=== PATIENT | male | born 1945 | race Caucasian/White ===

== ENCOUNTER 2019-06-11 16:21 | Inpatient (IN) | payer MEDICARE, MEDICAID ==
--- NOTE | 2019-06-11 16:39 | ER Document Report ---
ED General - General Chief Complaint: Shortness Of Breath Stated Complaint: SHORTNESS OF BREATH Time Seen by Provider: 06/11/19 16:25 Mode of Arrival: Medic Information source: Patient, Emergency Med Personnel TRAVEL OUTSIDE OF THE [place] IN LAST 30 DAYS: No - HPI Onset: Yesterday Onset/Duration: Gradual Quality of pain: No pain Severity: Moderate Pain Level: Denies Associated symptoms: Nonproductive cough, Shortness of breath, Other - hypoxia Exacerbated by: Other - exertion Relieved by: Denies Similar symptoms previously: Yes - with COPD Recently seen / treated by doctor: No Notes: 73 year old male with a history of COPD on 3L O2, CHF, HTN, Obesity brought on by EMS for shortness of breath and trouble breathing. The patient apparently had EMS come to his home yesterday and give him a breathing treatment for shortness of breath. The patient called EMS again today. EMS says the patient had sats in the 70s and they placed him on bipap. The patient initially wanted to refuse transport apparently but eventually gave in. The patient denies fevers, chills, sweats, nausea, vomiting, chest pain, productive cough. EMS gave 125mg of Solumedrol, Albuterol, and 2g of Mg prior to ER arrival. - Related Data Allergies/Adverse Reactions: codeine Allergy (Verified 06/11/19 17:05) Past Medical History - General Information source: Patient, Emergency Med Personnel - Social History Smoking Status: Current Some Day Smoker Frequency of alcohol use: None Drug Abuse: None Lives with: Family Family History: Reviewed & Not Pertinent - Past Medical History Cardiac Medical History: Reports: Hx Congestive Heart Failure, Hx Hypertension Pulmonary Medical History: Reports: Hx COPD Review of Systems - Review of Systems Constitutional: No symptoms reported EENT: No symptoms reported Cardiovascular: No symptoms reported Respiratory: Cough, Short of breath Gastrointestinal: No symptoms reported Genitourinary: No symptoms reported Male Genitourinary: No symptoms reported Musculoskeletal: No symptoms reported Skin: No symptoms reported Hematologic/Lymphatic: No symptoms reported Neurological/Psychological: No symptoms reported -: Yes All other systems reviewed and negative Physical Exam - Vital signs Vitals: Resp Pulse Ox 21 H 94 06/11/19 16:20 06/11/19 16:20 - Notes Notes: GENERAL: Chronically ill appearing, Obese, On bipap from EMS HEAD: Atraumatic, normocephalic. EYES: Pupils equal round and reactive to light, extraocular movements intact, sclera anicteric, conjunctiva are normal. ENT: Normal appearing external ears, nares patent, oropharynx clear without exudates. Moist mucous membranes. NECK: Normal range of motion, supple without lymphadenopathy or JVD. LUNGS: Decreased breath sounds throughout. Mild audible wheezes bilaterally. HEART: Regular rate and rhythm without murmurs, rubs or gallops. ABDOMEN: Distended abdomen, soft, nontender, normoactive bowel sounds. No guarding, no rebound. No masses appreciated. EXTREMITIES: Normal range of motion, no pitting or edema. No clubbing or cyanosis. NEUROLOGICAL: Cranial nerves II through XII grossly intact. Normal speech, normal gait. PSYCH: Normal mood, normal affect. SKIN: Edema of lower legs to mid shins, warm, Dry, normal turgor, no rashes or lesions noted. Course - Re-evaluation Re-evalutation: 06/11/19 21:51 The patient arrived short of breath on bipap. He likely has a combination of COPD flare and CHF. Patient's ABG which was done on bipap showed hypercapnea. Patient has not been having infectious symptoms such as fevers, chills, sweats productive cough. Patient admitted on Bipap for further care. Patient unlikely has COVID19 based on symptoms and work up to date. No need for antibiotics at this time. Patient was given solumedrol, IV Mag, and a Neb by EMS. - Vital Signs Vital signs: Temp Pulse Resp BP Pulse Ox 98.3 F 87 26 H 130/58 H 95 06/11/19 20:53 06/11/19 20:53 06/11/19 20:53 06/11/19 20:53 06/11/19 20:53 - Laboratory Result Diagrams: 06/11/19 16:22 06/11/19 16:22 Laboratory results interpreted by me: 06/11/19 06/11/19 06/11/19 16:22 16:22 16:22 RBC 4.30 L Hgb 12.5 L RDW 15.8 H Lymph % (Auto) 10.0 L Seg Neutrophils % 79.0 H Carbonic Acid ABG pH ABG pCO2 ABG pO2 ABG HCO3 ABG Total CO2 ABG O2 Saturation Sodium 136.2 L Potassium 5.3 H Chloride 92 L Carbon Dioxide 36 H BUN 29 H Est GFR (MDRD) Non-Af 58 L Glucose 117 H Calcium 7.9 L NT-Pro-B Natriuret Pep 1110 H 06/11/19 17:45 RBC Hgb RDW Lymph % (Auto) Seg Neutrophils % Carbonic Acid 2.57 H ABG pH 7.26 L ABG pCO2 85.5 H* ABG pO2 76.5 L ABG HCO3 37.8 H ABG Total CO2 40.4 H ABG O2 Saturation 92.6 L Sodium Potassium Chloride Carbon Dioxide BUN Est GFR (MDRD) Non-Af Glucose Calcium NT-Pro-B Natriuret Pep - Diagnostic Test Radiology reviewed: Image reviewed, Reports reviewed - EKG Interpretation by Me EKG shows normal: Sinus rhythm, [place], Intervals, QRS Complexes, ST-T Waves Rate: Normal Rhythm: NSR Discharge - Discharge Clinical Impression: Hypercapnia COPD (chronic obstructive pulmonary disease) Qualifiers: COPD type: unspecified COPD Qualified Code(s): J44.9 - Chronic obstructive pulmonary disease, unspecified Heart failure Qualifiers: Heart failure type: unspecified Heart failure chronicity: acute Qualified Code(s): I50.9 - Heart failure, unspecified Condition: Poor Disposition: ADMITTED INPATIENT Admitting Provider: Bigg (Hospitalist) Unit Admitted: [facility]
[2019-06-11 16:52] LABS: ABSOLUTE BASOPHILS # (AUTO) 0.1 10^3/uL (0.0-0.2); ABSOLUTE EOSINOPHILS # (AUTO) 0.1 10^3/uL (0.0-0.6); ABSOLUTE LYMPHOCYTES (AUTO) 0.8 10^3/uL (0.5-4.7); ABSOLUTE MONOCYTES (AUTO) 0.7 10^3/uL (0.1-1.4); BASOPHILS % (AUTO) 0.7 % (0-2); EOSINOPHILS % (AUTO) 1.5 % (0-6); HEMATOCRIT 38.3 % (37.9-51.0); HEMOGLOBIN 12.5 g/dL (13.5-17.0); MEAN CORPUSCULAR HEMOGLOBIN 29.1 pg (27.0-33.4); MEAN CORPUSCULAR HGB CONC 32.7 g/dL (32.0-36.0); MEAN CORPUSCULAR VOLUME 89 fl (80-97); MONOCYTES % (AUTO) 8.8 % (3-13); PLATELET COUNT 253 10^3/uL (150-450); RED CELL DISTRIBUTION WIDTH 15.8 % (11.5-14.0); TOTAL CELLS COUNTED % (AUTO) 100 %; WHITE BLOOD COUNT 7.6 10^3/uL (4.0-10.5)
[2019-06-11 17:13] LABS: ALBUMIN 3.8 g/dL (3.5-5.0); ALKALINE PHOSPHATASE 86 U/L (38-126); ASPARTATE AMINO TRANSFERASE 29 U/L (17-59); BILIRUBIN,DIRECT 0.1 mg/dL (0.0-0.4); BILIRUBIN,TOTAL 0.8 mg/dL (0.2-1.3); BLOOD UREA NITROGEN 29 mg/dL (7-20); CALCIUM 7.9 mg/dL (8.4-10.2); CHLORIDE 92 mmol/L (98-107); GLUCOSE 117 mg/dL (75-110); POTASSIUM 5.3 mmol/L (3.6-5.0); TOTAL PROTEIN 6.9 g/dL (6.3-8.2)
[2019-06-11 17:19] LABS: ANION GAP 8 (5-19); CARBON DIOXIDE 36 mmol/L (22-30)
[2019-06-11 17:20] LABS: TROPONIN I 0.013 ng/mL
--- NOTE | 2019-06-11 17:41 | RADIOLOGY REPORT (SQ) ---
EXAM DESCRIPTION: CHEST SINGLE VIEW IMAGES COMPLETED DATE/TIME: 06/11/2019 5:08 pm REASON FOR STUDY: eval for shortness of breath. rule out pneumonia COMPARISON: None. EXAM PARAMETERS: NUMBER OF VIEWS: One view. TECHNIQUE: Single frontal radiographic view of the chest acquired. RADIATION DOSE: NA LIMITATIONS: Portable chest, large patient FINDINGS: LUNGS AND PLEURA: Pulmonary vascular congestion is present. Arslan lines are present at b oth lung bases worrisome for fluid overload or interstitial pulmonary edema. Trace bilateral pleural effusions may be present. No pneumothorax. There are left basilar air bronchograms atelectasis versus pneumonia. MEDIASTINUM AND HILAR STRUCTURES: No masses. Contour normal. HEART AND VASCULAR STRUCTURES: marked cardiomegaly BONES: No acute findings. HARDWARE: None in the chest. OTHER: No other significant finding. IMPRESSION: Pulmonary vascular congestion with interstitial edema. Trace pleural effusions may pres ent. Cardiomegaly Left retrocardiac air bronchograms atelectasis versus pneumonia TECHNICAL DOCUMENTATION: JOB ID: [id number] 2010 [employer]- All Rights Reserved Reading location - IP/workstation name: [id number]
[2019-06-11 18:06] LABS: ARTERIAL BLOOD BASE EXCESS 7.6 mmol/L; ARTERIAL BLOOD H2CO3 2.57 mmol/L (1.05-1.35); ARTERIAL BLOOD HCO3 37.8 mmol/L (20-24); ARTERIAL BLOOD O2 SATURATION 92.6 % (94-98); ARTERIAL BLOOD PH 7.26 (7.35-7.45); ARTERIAL BLOOD PO2 76.5 mmHg (80-100); ARTERIAL BLOOD TOTAL CO2 40.4 mmol/L (23-27)
[2019-06-11 18:09] LABS: ARTERIAL BLOOD PCO2 85.5 mmHg (35-45)
[2019-06-11] MEDS ORDERED: MAG HYDROX/AL HYDROX/SIMETH SUSP 30 ML UDCUP PO PRN (18:40)
[2019-06-11] MEDS ORDERED: MAGNESIUM HYDROXIDE SUSP 30 ML UDCUP PO PRN (18:40)
[2019-06-11] MEDS ORDERED: ONDANSETRON HCL INJ/PF 4 MG/2 ML SDV IV PRN (18:40)
[2019-06-11] MEDS ORDERED: ALBUTEROL SULFATE 0.083% NEB 2.5 MG/3 ML AMPUL NEB PRN (18:47)
[2019-06-11] MEDS ORDERED: GUAIFENESIN SYRP 200 MG/10 ML UDC PO PRN (18:48)
--- NOTE | 2019-06-11 19:01 | PDOC H&P ---
History of Present Illness Admission Date/PCP: TRINA MONROY MD Patient complains of: Shortness of breath History of Present Illness: JOHN LINARES SR is a 73 year old male with a past medical history significant for chronic respiratory failure (on home O2 and trilogy device), likely obesity hypoventilation syndrome, COPD, CHF, opiate dependent chronic pain, restless leg syndrome, GERD, morbid obesity, and poor medication/healthcare utilization compliance who presented to the emergency department today with a complaint of 2 days of progressively worsening shortness of breath and wheezing. Patient denies fever, productive cough. No sick contacts. In the emergency department he is found to be hypoxic on room air (70% by EMS; of note, patient utilizes home O2 at baseline), with unremarkable CBC, chemistry showing mild hyperkalemia, proBNP 1100 (no previous labs to compare to), and blood gas demonstrating acute on chronic respiratory failure with hypoxia and hypercapnia. By EMS he was provided IV Solu-Medrol, magnesium, and nebulizer treatments. He is placed on BiPAP with near immediate improvement in his respiratory distress. He is then referred to the hospital service for admission management of the above-stated complaints and findings. Past Medical History Cardiac Medical History: Reports: Congestive Heart Failure, Hyperlipidema, Hypertension Pulmonary Medical History: Reports: Chronic Obstructive Pulmonary Disease (COPD), Respiratory Failure - Chronic EENT Medical History: Reports: None Neurological Medical History: Reports: None Endocrine Medical History: Reports: Obesity Denies: Diabetes Mellitus Type 2, Hypothyroidism Renal/ Medical History: Reports: None Malignancy Medical History: Reports: None GI Medical History: Reports: Gastroesophageal Reflux Disease Musculoskeltal Medical History: Reports: Arthritis Psychiatric Medical History: Reports: Depression Traumatic Medical History: Reports: None Hematology: Reports: None Infectious Medical History: Reports: None Past Surgical History Past Surgical History: Reports: Orthopedic Surgery - bilateral hip replacement bilateral carpel tunnel neck x 2 Social History Information Source: Patient Lives with: Alone Smoking Status: Former Smoker Electronic Cigarette use?: No Frequency of Alcohol Use: Social Hx Recreational Drug Use: No Hx Prescription Drug Abuse: No - Advance Directive Resuscitation Status: Full Code Family History Family History: Reviewed & Not Pertinent Parental Family History Reviewed: Yes Children Family History Reviewed: Yes Sibling(s) Family History Reviewed.: Yes Medication/Allergy Home Medications: Albuterol Sulfate [Albuterol Sulfate Hfa] 8.5 gm IH ASDIR PRN 04/22/20 Budesonide/Formoterol Fumarate [Symbicort Hfa 160-4.5 Mcg Inhaler 6 gm] 2 puff IH Q12 06/11/19 Carvedilol [Coreg 6.25 mg Tablet] 6.25 mg PO Q12 06/11/19 Cetirizine HCl [Zyrtec] 10 mg PO BID 06/11/19 Escitalopram Oxalate [Lexapro 10 mg Tablet] 20 mg PO QHS 06/11/19 Furosemide [Lasix 40 mg Tablet] 40 mg PO QAM 06/11/19 Indomethacin 25 mg PO TIDP PRN 06/11/19 Levothyroxine Sodium [Synthroid 0.025 mg Tablet] 25 mcg PO DAILY 06/11/19 Losartan Potassium [Cozaar 25 mg Tablet] 100 mg PO DAILY 06/11/19 Montelukast Sodium [Singulair] 10 mg PO DAILY 06/11/19 Oxycodone HCl [Oxycodone HCl ER] 10 mg PO Q4HP PRN 06/11/19 Pregabalin 75 mg PO QHS 06/11/19 Ranitidine HCl 300 mg PO DAILY 06/11/19 Rosuvastatin Calcium 10 mg PO QHS 06/11/19 Tamsulosin HCl [Flomax] 0.4 mg PO DAILY 06/11/19 Tiotropium Friona [Spiriva Respimat] 2 puff IH DAILY 06/11/19 Tizanidine HCl 4 mg PO BIDP PRN 06/11/19 Allergies/Adverse Reactions: codeine Allergy (Verified 06/11/19 17:05) Review of Systems Constitutional: ABSENT: chills, fever(s), headache(s), weight gain, weight loss Eyes: ABSENT: visual disturbances Ears: ABSENT: hearing changes Cardiovascular: ABSENT: chest pain, dyspnea on exertion, edema, orthropnea, palpitations Respiratory: PRESENT: cough, dyspnea. ABSENT: hemoptysis Gastrointestinal: ABSENT: abdominal pain, constipation, diarrhea, hematemesis, hematochezia, nausea, vomiting Genitourinary: ABSENT: dysuria, hematuria Musculoskeletal: ABSENT: joint swelling Integumentary: ABSENT: rash, wounds Neurological: ABSENT: abnormal gait, abnormal speech, confusion, dizziness, focal weakness, syncope Psychiatric: ABSENT: anxiety, depression, homidical ideation, suicidal ideation Endocrine: ABSENT: cold intolerance, heat intolerance, polydipsia, polyuria Hematologic/Lymphatic: ABSENT: easy bleeding, easy bruising Physical Exam Vital Signs: Temp Pulse Resp BP Pulse Ox 98.8 F 19 167/97 H 93 06/11/19 17:05 06/11/19 18:01 06/11/19 18:00 06/11/19 18:01 Intake & Output 06/10/19 06/11/19 06/12/19 06:59 06:59 06:59 Weight 167.1 kg General appearance: PRESENT: disheveled, mild distress, obese, well-developed, well-nourished Head exam: PRESENT: atraumatic, normocephalic Eye exam: PRESENT: conjunctiva pink, EOMI, PERRLA. ABSENT: scleral icterus Mouth exam: PRESENT: moist, tongue midline Respiratory exam: PRESENT: crackles, prolonged expiratory phas, symmetrical, unlabored, wheezes, other - BiPAP. ABSENT: rales, rhonchi Cardiovascular exam: PRESENT: RRR, +S1, +S2. ABSENT: diastolic murmur, rubs, systolic murmur Pulses: PRESENT: +1 pedal pulses bilateral Vascular exam: PRESENT: normal capillary refill GI/Abdominal exam: PRESENT: soft, other - Difficult to assess due to body habitus; massively rotund abdomen. Baseline/Chronic per patient.. ABSENT: distended, guarding, rebound, tenderness Rectal exam: PRESENT: deferred Extremities exam: PRESENT: full ROM, +1 edema - BLE. ABSENT: calf tenderness, clubbing, pedal edema Neurological exam: PRESENT: alert, awake, oriented to person, oriented to place, oriented to time, oriented to situation, CN II-XII grossly intact. ABSENT: motor sensory deficit Psychiatric exam: PRESENT: appropriate affect, normal mood. ABSENT: homicidal ideation, suicidal ideation Skin exam: PRESENT: dry, erythema - With excoriation to abdomen, intact, warm. ABSENT: cyanosis, rash Results Laboratory Results: 06/11/19 16:22 06/11/19 16:22 06/11/19 06/11/19 06/11/19 16:22 16:22 16:22 WBC 7.6 RBC 4.30 L Hgb 12.5 L Hct 38.3 MCV 89 MCH 29.1 MCHC 32.7 RDW 15.8 H Plt Count 253 Seg Neutrophils % 79.0 H Carbonic Acid HCO3/H2CO3 Ratio ABG pH ABG pCO2 ABG pO2 ABG HCO3 ABG O2 Saturation ABG Base Excess FiO2 Sodium 136.2 L Potassium 5.3 H Chloride 92 L Carbon Dioxide 36 H Anion Gap 8 BUN 29 H Creatinine 1.23 Est GFR ( Amer) > 60 Glucose 117 H Lactic Acid 0.8 Calcium 7.9 L Total Bilirubin 0.8 AST 29 Alkaline Phosphatase 86 Total Protein 6.9 Albumin 3.8 06/11/19 17:45 WBC RBC Hgb Hct MCV MCH MCHC RDW Plt Count Seg Neutrophils % Carbonic Acid 2.57 H HCO3/H2CO3 Ratio 14:1 ABG pH 7.26 L ABG pCO2 85.5 H* ABG pO2 76.5 L ABG HCO3 37.8 H ABG O2 Saturation 92.6 L ABG Base Excess 7.6 FiO2 55% Sodium Potassium Chloride Carbon Dioxide Anion Gap BUN Creatinine Est GFR ( Amer) Glucose Lactic Acid Calcium Total Bilirubin AST Alkaline Phosphatase Total Protein Albumin 06/11/19 16:22 Troponin I 0.013 NT-Pro-B Natriuret Pep 1110 H Impressions: Chest X-Ray 06/11/19 16:27 IMPRESSION: Pulmonary vascular congestion with interstitial edema. Trace pleural effusions may present. Cardiomegaly Left retrocardiac air bronchograms atelectasis versus pneumonia Assessment and Plan - Diagnosis (1) Acute CHF Qualifiers: Heart failure type: unspecified Qualified Code(s): I50.9 - Heart failure, unspecified Is this a current diagnosis for this admission?: Yes Plan: Patient with history of CHF. Has not followed with a segment block layer in a number of years. Noted to have vascular congestion on chest x-ray and bibasilar crackles. Echocardiogram pending. proBNP elevated to 1100 Patient is admitted to [facility] on continuous cardiac telemetry. Continue home dose carvedilol, losartan, and aspirin therapy. Diurese with IV furosemide. Cardiac diet. Daily weights, strict I&O's. (2) COPD exacerbation Is this a current diagnosis for this admission?: Yes Plan: Will provide supplemental oxygen and BiPAP as needed to maintain saturations greater than 89%. Patient is on home O2 and utilizes trilogy nightly. Start on scheduled and as needed nebulizer treatments. Received IV Solu-Medrol by EMS; start p.o. prednisone tomorrow. Mucinex twice daily. Robitussin as needed. Pulmonary toilet is encouraged with incentive spirometer, flutter valve, and early ambulation. (3) Acute and chronic respiratory failure Qualifiers: Respiratory failure complication: hypoxia and hypercapnia Qualified Code(s): J96.21 - Acute and chronic respiratory failure with hypoxia; J96.22 - Acute and chronic respiratory failure with hypercapnia Is this a current diagnosis for this admission?: Yes Plan: Secondary #1 and 2. Utilizes home O2 and trilogy device at baseline. Admits that he has not seen his title processor, Dr. Monroy, or primary care provider in a significant period of time. BiPAP overnight. Disease specific management as above. Follow-up ABG in the morning. (4) Hypothyroidism Is this a current diagnosis for this admission?: Yes Plan: Home dose levothyroxine. Check TSH with a.m. lab work. (5) Morbid obesity with BMI of 50.0-59.9, adult Is this a current diagnosis for this admission?: Yes Plan: TSH, lipid panel, A1c with a.m. lab work. Patient is placed on a cardiac diet. Registered dietitian and patient educator consulted. - Time Time Spent with patient: 35 or more minutes Medications reviewed and adjusted accordingly: Yes Anticipated discharge: Home with Homehealth - Inpatient Certification Based on my medical assessment, after consideration of the patient's comorbidities, presenting symptoms, or acuity I expect that the services needed warrant INPATIENT care.: Yes I certify that my determination is in accordance with my understanding of Medicare's requirements for reasonable and necessary INPATIENT services [42 CFR 412.3e].: Yes Medical Necessity: Failure to Improve With Outpatient Therapy, Significant Comorbidiites Make Outpatient Treatment Too Risky, Need Close Monitoring Due to Risk of Patient Decompensation, Need For Continuous Telemetry Monitoring, Risk of Complication if Not Cared For in Hospital, Risk of Diagnosis Which Will Require Inpatient Eval/Care/Monitoring
[2019-06-11] MEDS: FUROSEMIDE INJ/PF 20 MG/2 ML SDV IV SCH (19:33)
[2019-06-11] MEDS: ACETAMINOPHEN 325 MG TABLET PO PRN (19:34)
[2019-06-11] MEDS: IPRATROPIUM/ALBUTEROL 0.5-2.5 MG/3 ML AMPUL NEB SCH (19:48)
[2019-06-11] MEDS: ESCITALOPRAM OXALATE 10 MG TABLET PO SCH (21:49)
[2019-06-11] MEDS: GUAIFENESIN 600 MG TABLET.SA PO SCH (21:49)
[2019-06-11] MEDS: FAMOTIDINE 20 MG TABLET PO SCH (21:49)
[2019-06-11] MEDS: ATORVASTATIN CALCIUM 20 MG TABLET PO SCH (21:49)
[2019-06-11] MEDS: CETIRIZINE 10 MG TABLET PO SCH (21:49)
[2019-06-11] MEDS: CARVEDILOL 6.25 MG TABLET PO SCH (21:49)
[2019-06-11] MEDS: HEPARIN SOD (PORCINE) 5,000 UNIT/ML 1 ML VIAL SUBCUT SCH (21:53)
[2019-06-11] MEDS ORDERED: (PENDING PHARMACY ID) (Rosuvastatin Calcium [Rosuvastatin Calcium] 10 MG) PO SCH (22:00)
[2019-06-12] MEDS: IPRATROPIUM/ALBUTEROL 0.5-2.5 MG/3 ML AMPUL NEB SCH ×4 (02:26→20:32)
[2019-06-12] MEDS: ACETAMINOPHEN 325 MG TABLET PO PRN (03:14)
[2019-06-12 05:36] LABS: HEMATOCRIT 37.2 % (37.9-51.0); HEMOGLOBIN 12.3 g/dL (13.5-17.0); MEAN CORPUSCULAR HEMOGLOBIN 29.3 pg (27.0-33.4); MEAN CORPUSCULAR HGB CONC 33.1 g/dL (32.0-36.0); MEAN CORPUSCULAR VOLUME 89 fl (80-97); PLATELET COUNT 226 10^3/uL (150-450); RED CELL DISTRIBUTION WIDTH 16.1 % (11.5-14.0); WHITE BLOOD COUNT 6.6 10^3/uL (4.0-10.5)
[2019-06-12] MEDS: HEPARIN SOD (PORCINE) 5,000 UNIT/ML 1 ML VIAL SUBCUT SCH ×3 (05:39→21:31)
[2019-06-12] MEDS: PANTOPRAZOLE SODIUM 20 MG TABLET.DR PO SCH (05:39)
[2019-06-12] MEDS: FUROSEMIDE INJ/PF 20 MG/2 ML SDV IV SCH (05:39)
[2019-06-12 06:05] LABS: ANION GAP 7 (5-19); BLOOD UREA NITROGEN 28 mg/dL (7-20); CALCIUM 8.1 mg/dL (8.4-10.2); CARBON DIOXIDE 37 mmol/L (22-30); CHLORIDE 92 mmol/L (98-107); CHOLESTEROL 126.31 mg/dL (0-200); GLUCOSE 141 mg/dL (75-110); POTASSIUM 4.8 mmol/L (3.6-5.0); TRIGLYCERIDES 122 mg/dL (<150)
[2019-06-12 06:15] LABS: DIRECT LDL 74 mg/dL (<100)
[2019-06-12 06:20] LABS: NT PRO BNP 834 pg/mL (<125)
[2019-06-12 06:24] LABS: TROPONIN I < 0.012 ng/mL
[2019-06-12 06:47] LABS: ARTERIAL BLOOD H2CO3 2.45 mmol/L (1.05-1.35); ARTERIAL BLOOD HCO3 39.5 mmol/L (20-24); ARTERIAL BLOOD O2 SATURATION 92.8 % (94-98); ARTERIAL BLOOD PO2 74.4 mmHg (80-100)
[2019-06-12 06:54] LABS: ARTERIAL BLOOD PCO2 81.3 mmHg (35-45)
[2019-06-12] MEDS ORDERED: OXYCODONE-ACETAMINOPHEN 5-325 MG TABLET PO PRN (08:54)
[2019-06-12] MEDS ORDERED: (PENDING PHARMACY ID) (Ranitidine Hcl [Ranitidine Hcl] 300 MG) PO SCH (10:00)
[2019-06-12] MEDS ORDERED: (PENDING PHARMACY ID) (Cetirizine Hcl [Zyrtec] 10 MG) PO SCH (10:00)
[2019-06-12] MEDS ORDERED: (PENDING PHARMACY ID) (Tiotropium Bromide [Spiriva Respimat] 2 PUFF) IH SCH (10:00)
[2019-06-12] MEDS ORDERED: LOSARTAN POTASSIUM 25 MG TABLET PO SCH (10:00)
--- NOTE | 2019-06-12 10:52 | PDOC PROGRESS REPORT ---
Subjective Progress Note for:: 06/12/19 Subjective:: JOHN LINARES SR is a 73 year old male with a past medical history significant for chronic respiratory failure (on home O2 and trilogy device), likely obesity hypoventilation syndrome, COPD, CHF, opiate dependent chronic pain, restless leg syndrome, GERD, morbid obesity, and poor medication/healthcare utilization who was admitted 06/10/2027 with acute respiratory failure secondary to CHF and COPD exacerbations. Patient was seen on morning rounds. He was found resting in bed, comfortably, on BiPAP. Per nursing, they attempted to take BiPAP off for a few moments for toileting and patient quickly became dyspneic. Patient reports that he is feeling much better; decreased dyspnea, cough. He also reports decreased and peripheral edema. Looking forward to breakfast. He does asked to have his pain medications resumed. Otherwise, he has no questions or concerns. Denies fever, chills, chest pain, palpitations, abdominal pain, nausea vomiting diarrhea. No concerns per nursing. Reason For Visit: HEART FAILURE Physical Exam Vital Signs: Temp Pulse Resp BP Pulse Ox 97.9 F 84 26 H 136/62 H 94 06/12/19 07:44 06/12/19 07:44 06/12/19 07:44 06/12/19 07:44 06/12/19 07:44 Intake & Output 06/11/19 06/12/19 06/13/19 06:59 06:59 06:59 Output Total 1350 Balance -1350 Weight 165.1 kg 165.1 kg General appearance: PRESENT: no acute distress, cooperative, morbidly obese, well-developed, well-nourished Head exam: PRESENT: atraumatic, normocephalic Eye exam: PRESENT: conjunctiva pink, EOMI, PERRLA. ABSENT: scleral icterus Ear exam: PRESENT: normal external ear exam Mouth exam: PRESENT: dry mucosa, tongue midline Respiratory exam: PRESENT: clear to auscultation oscar, prolonged expiratory phas, symmetrical, unlabored, other - BiPAP. ABSENT: rales, rhonchi, wheezes Cardiovascular exam: PRESENT: RRR, +S1, +S2. ABSENT: diastolic murmur, rubs, systolic murmur Pulses: PRESENT: normal dorsalis pedis pul Vascular exam: PRESENT: normal capillary refill GI/Abdominal exam: PRESENT: normal bowel sounds, soft, other - Difficult to assess due to body habitus; massively rotund abdomen. Baseline/Chronic per patient. ABSENT: distended, guarding, rebound, tenderness Rectal exam: PRESENT: deferred Extremities exam: PRESENT: full ROM. ABSENT: calf tenderness, clubbing, pedal edema Neurological exam: PRESENT: alert, awake, oriented to person, oriented to place, oriented to time, oriented to situation, CN II-XII grossly intact. ABSENT: motor sensory deficit Psychiatric exam: PRESENT: appropriate affect, normal mood. ABSENT: homicidal ideation, suicidal ideation Skin exam: PRESENT: dry, intact, warm. ABSENT: cyanosis, rash Results Laboratory Results: 06/12/19 04:37 06/12/19 04:37 06/11/19 06/11/19 06/11/19 16:22 16:22 16:22 WBC 7.6 RBC 4.30 L Hgb 12.5 L Hct 38.3 MCV 89 MCH 29.1 MCHC 32.7 RDW 15.8 H Plt Count 253 Seg Neutrophils % 79.0 H Carbonic Acid HCO3/H2CO3 Ratio ABG pH ABG pCO2 ABG pO2 ABG HCO3 ABG O2 Saturation ABG Base Excess FiO2 Sodium 136.2 L Potassium 5.3 H Chloride 92 L Carbon Dioxide 36 H Anion Gap 8 BUN 29 H Creatinine 1.23 Est GFR ( Amer) > 60 Glucose 117 H Lactic Acid 0.8 Calcium 7.9 L Total Bilirubin 0.8 AST 29 Alkaline Phosphatase 86 Total Protein 6.9 Albumin 3.8 Triglycerides Cholesterol LDL Cholesterol Direct VLDL Cholesterol HDL Cholesterol TSH 06/11/19 06/12/19 06/12/19 17:45 04:37 04:37 WBC RBC Hgb Hct MCV MCH MCHC RDW Plt Count Seg Neutrophils % Carbonic Acid 2.57 H HCO3/H2CO3 Ratio 14:1 ABG pH 7.26 L ABG pCO2 85.5 H* ABG pO2 76.5 L ABG HCO3 37.8 H ABG O2 Saturation 92.6 L ABG Base Excess 7.6 FiO2 55% Sodium 135.7 L Potassium 4.8 Chloride 92 L Carbon Dioxide 37 H Anion Gap 7 BUN 28 H Creatinine 1.00 Est GFR ( Amer) > 60 Glucose 141 H Lactic Acid Calcium 8.1 L Total Bilirubin AST Alkaline Phosphatase Total Protein Albumin Triglycerides 122 Cholesterol 126.31 LDL Cholesterol Direct 74 VLDL Cholesterol 24.0 HDL Cholesterol 40 TSH 0.67 06/12/19 06/12/19 04:37 06:35 WBC 6.6 RBC 4.20 L Hgb 12.3 L Hct 37.2 L MCV 89 MCH 29.3 MCHC 33.1 RDW 16.1 H Plt Count 226 Seg Neutrophils % Carbonic Acid 2.45 H HCO3/H2CO3 Ratio 16:1 ABG pH 7.30 L ABG pCO2 81.3 H* ABG pO2 74.4 L ABG HCO3 39.5 H ABG O2 Saturation 92.8 L ABG Base Excess 10.0 FiO2 55% Sodium Potassium Chloride Carbon Dioxide Anion Gap BUN Creatinine Est GFR ( Amer) Glucose Lactic Acid Calcium Total Bilirubin AST Alkaline Phosphatase Total Protein Albumin Triglycerides Cholesterol LDL Cholesterol Direct VLDL Cholesterol HDL Cholesterol TSH 06/11/19 06/11/19 06/12/19 16:22 22:18 04:37 Troponin I 0.013 < 0.012 < 0.012 NT-Pro-B Natriuret Pep 1110 H 834 H Impressions: Chest X-Ray 06/11/19 16:27 IMPRESSION: Pulmonary vascular congestion with interstitial edema. Trace pleural effusions may present. Cardiomegaly Left retrocardiac air bronchograms atelectasis versus pneumonia Assessment and Plan - Diagnosis (1) Acute CHF Qualifiers: Heart failure type: unspecified Qualified Code(s): I50.9 - Heart failure, unspecified Is this a current diagnosis for this admission?: Yes Plan: Improved; clear lung sounds, decreased peripheral edema. proBNP trending down. Patient with history of CHF. Has not followed with a cnc technician in a number of years. Noted to have vascular congestion on chest x-ray and bibasilar crackles. Echocardiogram pending. proBNP elevated to 1100 Patient is admitted to [facility] on continuous cardiac telemetry. Continue home dose carvedilol, losartan, and aspirin therapy. Hold furosemide furosemide. Cardiac diet. Fluid restrict 1500 Daily weights, strict I&O's. (2) COPD exacerbation Is this a current diagnosis for this admission?: Yes Plan: Slight improvement; ABGs trending correct direction, lung sounds now clear. Will provide supplemental oxygen and BiPAP as needed to maintain saturations greater than 89%. Patient is on home O2 and utilizes trilogy nightly. Have adjusted BiPAP settings. Start on scheduled and as needed nebulizer treatments. Continue p.o. prednisone tomorrow. Mucinex twice daily. Robitussin as needed. Pulmonary toilet is encouraged with incentive spirometer, flutter valve, and early ambulation. (3) Acute and chronic respiratory failure Qualifiers: Respiratory failure complication: hypoxia and hypercapnia Qualified Code(s): J96.21 - Acute and chronic respiratory failure with hypoxia; J96.22 - Acute and chronic respiratory failure with hypercapnia Is this a current diagnosis for this admission?: Yes Plan: Slight improvement. Secondary #1 and 2. Utilizes home O2 and trilogy device at baseline. Admits that he has not seen his shank faker, Dr. Palma, or primary care provider in a significant period of time. BiPAP overnight. Disease specific management as above. (4) Hypothyroidism Is this a current diagnosis for this admission?: Yes Plan: TSH 0.67 Home dose levothyroxine. (5) Morbid obesity with BMI of 50.0-59.9, adult Is this a current diagnosis for this admission?: Yes Plan: TSH normal. Lipid panel acceptable. A1c 6.3% Patient is placed on a cardiac diet. Registered dietitian and patient educator consulted. (6) Opiate dependence, continuous Is this a current diagnosis for this admission?: Yes Plan: Patient with opiate dependent chronic pain. His narcotic medications were held overnight due to respiratory status. We will resume low-dose Lyrica and oxycodone today. - Time Time Spent with patient: 25-34 minutes
[2019-06-12] MEDS: LEVOTHYROXINE SODIUM 0.025 MG TABLET PO SCH (12:38)
[2019-06-12] MEDS: FAMOTIDINE 20 MG TABLET PO SCH ×2 (12:39→21:00)
[2019-06-12] MEDS: ASPIRIN 81 MG TABLET, ENT COATED PO SCH (12:39)
[2019-06-12] MEDS: PREGABALIN 25 MG CAPSULE PO SCH ×2 (12:39→21:26)
[2019-06-12] MEDS: CETIRIZINE 10 MG TABLET PO SCH ×2 (12:40→21:27)
[2019-06-12] MEDS: DOCUSATE SODIUM 100 MG CAPSULE PO SCH (12:40)
[2019-06-12] MEDS: PREDNISONE 20 MG TABLET PO SCH (12:41)
[2019-06-12] MEDS: MONTELUKAST SODIUM 10 MG TABLET PO SCH (12:43)
[2019-06-12] MEDS: TAMSULOSIN HCL 0.4 MG CAP.SR.24H PO SCH (12:43)
[2019-06-12] MEDS: LOSARTAN POTASSIUM 50 MG TABLET PO SCH (12:43)
[2019-06-12] MEDS: GUAIFENESIN 600 MG TABLET.SA PO SCH ×2 (12:44→21:27)
[2019-06-12] MEDS: CARVEDILOL 6.25 MG TABLET PO SCH ×2 (12:44→21:27)
[2019-06-12] MEDS: FLUTICASONE/VILANTEROL 200-25 MCG/DOSE IH SCH (16:12)
[2019-06-12] MEDS: UMECLIDINIUM BROMIDE 62.5 MCG/DOSE IH SCH (16:12)
[2019-06-12] MEDS ORDERED: FUROSEMIDE INJ/PF 20 MG/2 ML SDV IV ONE (17:30)
--- NOTE | 2019-06-12 18:48 | XCELERA REPORT ---
[address] [address] Transthoracic Echocardiogram Report Name: JOHN LINARES SR Age: 73 yrs Gender: Male : 1945 Patient Status: Inpatient Patient Location: [facility]^A Study Date: 06/12/2019 10:34 AM Height: 67 in Weight: 368 lb BSA: 2.6 m2 Procedure: A complete two-dimensional transthoracic echocardiogram was performed (2D, M-mode, spectral and color flow Doppler). The study was technically difficult with many images being suboptimal in quality. Reason For Study: CHF exacerbation Ordering Physician: SHAHLA BELLE Performed By: Lulú Franco Interpretation Summary LEFT VENTRICLE: LV Systolic function: LVEF is felt to be within normal limits. Best estimate is approximately LVEF is 60 to 65%. LV Diastolic Function: Grade II diastolic dysfunction noted. Wall motion : cannot accurately commented on wall motion. Left ventricular chamber size : is within normal limit. Left ventricular wall thickness : is increased indicative of moderate LVH. RIGHT VENTRICLE: RV systolic function : is felt to be within normal limit. Right Ventricle Size : RV is mildly dilated LEFT ATRIUM size : is mildly dilated. RIGHT ATRIUM size : mildly dilated. INTER ATRIAL SEPTUM : No definite atrial septal defect noted however a small PFO could be missed. AORTIC ROOT : seems to be within normal limits. Ascending aorta is not well visualized. INFERIOR VENA CAVA: was not well visualized. VALVES: MITRAL VALVE : Leaflets are mildly thickened. Mobility seems to be within normal limits. Mitral Regurgitation : trace to mild mitral regurgitation is noted. Mitral Stenosis: No mitral stenosis noted. Mitral valve prolapse : none noted. AORTIC VALVE: seems to be trileaflet with mild thickening but adequate excursion. Aortic stenosis : No aortic stenosis noted. Aortic regurgitation : trace aortic incompetence noted. TRICUSPID VALVE : mobility and structures within normal limit. Tricuspid stenosis : no tricuspid stenosis noted. Tricuspid regurgitation : Trace tricuspid regurgitation noted. Estimated RVSP : cannot be accurately commented upon but possibly at upper limit of normal. PULMONARY VALVE : was not well visualized but no significant abnormalities suspected. Pulmonary stenosis : no pulmonary stenosis noted. Pulmonary regurgitation : no significant pulmonary regurgitation noted. MASSES AND THROMBUS : No definite intracardiac thrombus or masses are noted. PERICARDIUM: No pericardial effusion was noted. IMPRESSION : 1. Normal LVEF. 2. Moderate LVH noted 3. Grade II [mild] Diastolic Dysfunction noted. 4. Trace to mild mitral, trace aortic regurgitation noted. 5. LA is mildly dilated. RA is mildly dilated, RVs mildly dilated. 6. Echocardiogram was technically difficult therefore clinical correlation is requested. MMode/2D Measurements & Calculations RVDd: 4.3 cm LVIDd: 5.0 cm FS: 29.4 % Ao root diam: 3.0 cm IVSd: 1.7 cm LVIDs: 3.5 cm EDV(Teich): 116.5 ml Ao root area: 6.9 cm2 LVPWd: 1.6 cm ESV(Teich): 51.1 ml LA dimension: 4.0 cm EF(Teich): 56.1 % Doppler Measurements & Calculations MV E max mike: MV P1/2t max mike: Ao V2 max: LV V1 max P.7 cm/sec 103.2 cm/sec 194.4 cm/sec 7.8 mmHg MV A max mike: MV P1/2t: 77.7 msec Ao max PG: LV V1 max: 119.4 cm/sec MVA(P1/2t): 2.8 cm2 15.1 mmHg 139.8 cm/sec MV E/A: 0.85 MV dec slope: 388.8 cm/sec2 MV dec time: 0.26 sec PA V2 max: MV P1/2t-pr_phl: 98.2 cm/sec 77.7 msec PA max P.9 mmHg : SHAHLA BELLE Shyamal
[2019-06-12] MEDS: ESCITALOPRAM OXALATE 10 MG TABLET PO SCH (21:25)
[2019-06-12] MEDS: ATORVASTATIN CALCIUM 20 MG TABLET PO SCH (21:25)
[2019-06-12] MEDS ORDERED: ROPINIROLE HCL 1 MG TABLET PO SCH (22:00)
[2019-06-13] MEDS: IPRATROPIUM/ALBUTEROL 0.5-2.5 MG/3 ML AMPUL NEB SCH ×4 (02:11→20:34)
[2019-06-13] MEDS: HEPARIN SOD (PORCINE) 5,000 UNIT/ML 1 ML VIAL SUBCUT SCH ×2 (05:24→16:06)
[2019-06-13] MEDS: PANTOPRAZOLE SODIUM 20 MG TABLET.DR PO SCH (05:24)
[2019-06-13 06:50] LABS: ANION GAP 5 (5-19); BLOOD UREA NITROGEN 34 mg/dL (7-20); CALCIUM 8.3 mg/dL (8.4-10.2); CARBON DIOXIDE 38 mmol/L (22-30); CHLORIDE 94 mmol/L (98-107); GLUCOSE 111 mg/dL (75-110); POTASSIUM 4.7 mmol/L (3.6-5.0)
[2019-06-13] MEDS ORDERED: EPINEPHRINE INJ 1 MG/10 ML DISP.SYRIN ONE (09:20)
[2019-06-13] MEDS ORDERED: SODIUM BICARBONATE 8.4% INJ 50 MEQ/50 ML DISP.SYRIN ONE ×2 (09:20→17:48)
--- NOTE | 2019-06-13 09:37 | RADIOLOGY REPORT (SQ) ---
EXAM DESCRIPTION: CHEST SINGLE VIEW IMAGES COMPLETED DATE/TIME: 06/13/2019 8:53 am REASON FOR STUDY: dyspnea, hypoxia COMPARISON: 06/11/2019 EXAM PARAMETERS: NUMBER OF VIEWS: One view. TECHNIQUE: Single frontal radiographic view of the chest acquired. RADIATION DOSE: NA LIMITATIONS: None. FINDINGS: LUNGS AND PLEURA: No focal airspace disease. Prominent bilateral interstitial opacities. Trace bilateral effusion. No pneumothorax. MEDIASTINUM AND HILAR STRUCTURES: No masses. Contour normal. HEART AND VASCULAR STRUCTURES: Enlarged, stable. BONES: No acute findings. HARDWARE: None in the chest. OTHER: No other significant finding. IMPRESSION: Stable enlarged cardiac silhouette, trace bilateral effusions and interstitial edema. TECHNICAL DOCUMENTATION: JOB ID: [id number] 2010 [employer]- All Rights Reserved Reading location - IP/workstation name: [email or web address]
[2019-06-13] MEDS: LOSARTAN POTASSIUM 50 MG TABLET PO SCH (11:18)
[2019-06-13] MEDS: TAMSULOSIN HCL 0.4 MG CAP.SR.24H PO SCH (11:19)
[2019-06-13] MEDS: PREDNISONE 20 MG TABLET PO SCH (11:19)
[2019-06-13] MEDS: PREGABALIN 25 MG CAPSULE PO SCH (11:19)
[2019-06-13] MEDS: MONTELUKAST SODIUM 10 MG TABLET PO SCH (11:20)
[2019-06-13] MEDS: LEVOTHYROXINE SODIUM 0.025 MG TABLET PO SCH (11:20)
[2019-06-13] MEDS: GUAIFENESIN 600 MG TABLET.SA PO SCH (11:20)
[2019-06-13] MEDS: FAMOTIDINE 20 MG TABLET PO SCH (11:20)
[2019-06-13] MEDS: CETIRIZINE 10 MG TABLET PO SCH (11:21)
[2019-06-13] MEDS: CARVEDILOL 6.25 MG TABLET PO SCH (11:21)
[2019-06-13] MEDS: FLUTICASONE/VILANTEROL 200-25 MCG/DOSE IH SCH (11:23)
[2019-06-13] MEDS: UMECLIDINIUM BROMIDE 62.5 MCG/DOSE IH SCH (11:23)
[2019-06-13] MEDS: DOCUSATE SODIUM 100 MG CAPSULE PO SCH (11:24)
[2019-06-13] MEDS: ASPIRIN 81 MG TABLET, ENT COATED PO SCH (11:27)
[2019-06-13] MEDS ORDERED: FUROSEMIDE INJ/PF 20 MG/2 ML SDV IV ONE (11:30)
[2019-06-13] MEDS ORDERED: HYDRALAZINE HCL INJ/PF 20 MG/1 ML SDV IV PRN (11:30)
[2019-06-13] MEDS ORDERED: METHYLPREDNISOLONE INJ 125 MG/2 ML SDV IV ONE (12:30)
--- NOTE | 2019-06-13 15:32 | PDOC PROGRESS REPORT ---
Subjective Progress Note for:: 06/13/19 Subjective:: JOHN LINARES SR is a 73 year old male with a past medical history significant for chronic respiratory failure (on home O2 and trilogy device), likely obesity hypoventilation syndrome, COPD, CHF, opiate dependent chronic pain, restless leg syndrome, GERD, morbid obesity, and poor medication/healthcare utilization who was admitted 06/10/2027 with acute respiratory failure secondary to CHF and COPD exacerbations. Patient was seen on morning rounds. He was found sitting up to the edge of the bed, comfortably, on BiPAP. Vaibhavst ambulated ~30 feet with PT while on NRB. Unfortunately, he desaturated with transition to nasal cannula. He is only able to tolerate NRB for short periods of time. Patient reports that he is feeling much better; decreased dyspnea, cough. He also reports decreased and peripheral edema. He does asked to be discharged home today., However, he is noted to be tachypneic with 2-3 word sentences while on BiPAP, with diminished/tight lung sounds. Otherwise, he has no questions or concerns. Denies fever, chills, chest pain, palpitations, abdominal pain, nausea vomiting diarrhea. No concerns per nursing. Reason For Visit: HEART FAILURE Physical Exam Vital Signs: Temp Pulse Resp BP Pulse Ox 98.0 F 84 14 126/103 H 95 06/13/19 11:59 06/13/19 13:34 06/13/19 13:34 06/13/19 11:59 06/13/19 13:34 Intake & Output 06/12/19 06/13/19 06/14/19 06:59 06:59 06:59 Intake Total 250 Output Total 1350 300 Balance -1350 -50 Weight 165.1 kg 159.2 kg General appearance: PRESENT: no acute distress, cooperative, morbidly obese, well-developed, well-nourished Head exam: PRESENT: atraumatic, normocephalic Eye exam: PRESENT: conjunctiva pink, EOMI, PERRLA. ABSENT: scleral icterus Mouth exam: PRESENT: moist, tongue midline Respiratory exam: PRESENT: decreased breath sounds - throughout, prolonged expiratory phas, symmetrical, tachypnea, other - Bipap. ABSENT: rales, rhonchi, wheezes Cardiovascular exam: PRESENT: RRR, +S1, +S2. ABSENT: diastolic murmur, rubs, systolic murmur Vascular exam: PRESENT: normal capillary refill Extremities exam: PRESENT: full ROM. ABSENT: calf tenderness, clubbing, pedal e elaine Musculoskeletal exam: PRESENT: ambulatory Neurological exam: PRESENT: alert, awake, oriented to person, oriented to place, oriented to time, oriented to situation, CN II-XII grossly intact. ABSENT: motor sensory deficit Psychiatric exam: PRESENT: appropriate affect, normal mood. ABSENT: homicidal ideation, suicidal ideation Skin exam: PRESENT: dry, intact, warm. ABSENT: cyanosis, rash Results Laboratory Results: 06/12/19 04:37 06/13/19 06:20 06/13/19 06/13/19 04:54 06:20 Sodium Cancelled 136.7 L Potassium Cancelled 4.7 Chloride Cancelled 94 L Carbon Dioxide Cancelled 38 H Anion Gap Cancelled 5 BUN Cancelled 34 H Creatinine Cancelled 1.05 Est GFR ( Amer) Cancelled > 60 Est GFR (Non-Af Amer) Cancelled Glucose Cancelled 111 H Calcium Cancelled 8.3 L 06/11/19 06/11/19 06/12/19 16:22 22:18 04:37 Troponin I 0.013 < 0.012 < 0.012 NT-Pro-B Natriuret Pep 1110 H 834 H 06/12/19 10:05 Troponin I 0.016 NT-Pro-B Natriuret Pep Impressions: Chest X-Ray 06/13/19 00:00 IMPRESSION: Stable enlarged cardiac silhouette, trace bilateral effusions and interstitial edema. Assessment and Plan - Diagnosis (1) Acute CHF Qualifiers: Heart failure type: unspecified Qualified Code(s): I50.9 - Heart failure, unspecified Is this a current diagnosis for this admission?: Yes Plan: Improved Patient with history of CHF. Has not followed with a sales development director in a number of years. Noted to have vascular congestion on chest x-ray and bibasilar crackles. Echocardiogram shows normal LVEF, moderate LVH, grade 2 diastolic dysfunction, trace to mild mitral, trace aortic regurgitation, mildly dilatated LA, RA mildly dilatated, RV mildly dilatated. proBNP elevated to 1100-> 834 Patient is admitted to [facility] on continuous cardiac telemetry. Continue home dose carvedilol, losartan, and aspirin therapy. Additional furosemide today Cardiac diet. Fluid restrict 1500 Daily weights, strict I&O's. (2) COPD exacerbation Is this a current diagnosis for this admission?: Yes Plan: Slight improvement; ABGs trending correct direction Will provide supplemental oxygen and BiPAP as needed to maintain saturations greater than 89%. Patient is on home O2 and utilizes trilogy nightly. Have adjusted BiPAP settings. Start on scheduled and as needed nebulizer treatments. We will step up to Solu-Medrol as the patient has diminished/tight lung sounds with continued BiPAP dependence. Mucinex twice daily. Robitussin as needed. Pulmonary toilet is encouraged with incentive spirometer, flutter valve, and early ambulation. (3) Acute and chronic respiratory failure Qualifiers: Respiratory failure complication: hypoxia and hypercapnia Qualified Code(s): J96.21 - Acute and chronic respiratory failure with hypoxia; J96.22 - Acute and chronic respiratory failure with hypercapnia Is this a current diagnosis for this admission?: Yes Plan: Slight improvement. Secondary #1 and 2. Utilizes home O2 and trilogy device at baseline. Admits that he has not seen his franchise consultant, Dr. Palma, or primary care provider in a significant period of time. BiPAP overnight. Disease specific management as above. (4) Hypothyroidism Is this a current diagnosis for this admission?: Yes Plan: TSH 0.67 Home dose levothyroxine. (5) Morbid obesity with BMI of 50.0-59.9, adult Is this a current diagnosis for this admission?: Yes Plan: TSH normal. Lipid panel acceptable. A1c 6.3% Patient is placed on a cardiac diet. Registered dietitian and patient educator consulted. (6) Opiate dependence, continuous Is this a current diagnosis for this admission?: Yes Plan: Patient with opiate dependent chronic pain. His narcotic medications were held overnight due to respiratory status. We will resume low-dose Lyrica and oxycodone today. - Time Time Spent with patient: 25-34 minutes Medications reviewed and adjusted accordingly: Yes Anticipated discharge: Home
[2019-06-13] MEDS ORDERED: FUROSEMIDE INJ/PF 20 MG/2 ML SDV ONE (16:01)
[2019-06-13] MEDS ORDERED: METHYLPREDNISOLONE INJ 125 MG/2 ML SDV ONE (16:02)
[2019-06-13 16:42] VITALS: BP 123/88
--- NOTE | 2019-06-13 19:57 | Death Summary ---
<MAHNAZ HASTINGS - Last Filed: 06/14/19 10:31> Summary Date : 06/13/19 Time of :: 17:52 Autopsy: No Resuscitation Status: Full Code - Final Diagnosis (1) Aspiration into airway Is this a current diagnosis for this admission?: Yes (2) Respiratory arrest Is this a current diagnosis for this admission?: Yes (3) Acute CHF Is this a current diagnosis for this admission?: Yes (4) COPD exacerbation Is this a current diagnosis for this admission?: Yes (5) Acute and chronic respiratory failure Is this a current diagnosis for this admission?: Yes (6) Hypothyroidism Is this a current diagnosis for this admission?: Yes (7) Morbid obesity with BMI of 50.0-59.9, adult Is this a current diagnosis for this admission?: Yes (8) Opiate dependence, continuous Is this a current diagnosis for this admission?: Yes Hospital Course:: Per H&P: JOHN LINARES SR is a 73 year old male with a past medical history significant for chronic respiratory failure (on home O2 and trilogy device), likely obesity hypoventilation syndrome, COPD, CHF, opiate dependent chronic pain, restless leg syndrome, GERD, morbid obesity, and poor medication/healthcare utilization compliance who presented to the emergency department today with a complaint of 2 days of progressively worsening shortness of breath and wheezing. Patient denies fever, productive cough. No sick contacts. In the emergency department he is found to be hypoxic on room air (70% by EMS; of note, patient utilizes home O2 at baseline), with unremarkable CBC, chemistry showing mild hyperkalemia, proBNP 1100 (no previous labs to compare to), and blood gas demonstrating acute on chronic respiratory failure with hypoxia and hypercapnia. By EMS he was provided IV Solu-Medrol, magnesium, and nebulizer treatments. He is placed on BiPAP with near immediate improvement in his respiratory distress. He is then referred to the hospital service for admission management of the above-stated complaints and findings. Course: Patient was admitted to [facility] on continuous cardiac telemetry. The patient's CHF exacerbation was managed through continuing his home dose beta- james, losartan, and aspirin. He was fluid restricted, placed on cardiac diet and received IV furosemide for diuresis. His proBNP trended downward and peripheral edema improved, however, he continued to have vascular congestion by chest x-ray. Echocardiogram completed; no significant/concerning findings. Moderate diastolic dysfunction noted. Patient's COPD was managed through with supplemental oxygen and BiPAP use. ABGs were utilized to titrate device. He was placed on scheduled nebulizer treatments and initially p.o. prednisone. As his symptoms were slow to improve, he was escalated to IV Solu-Medrol. The patient's home dose Lyrica and oxycodone were decreased due to respiratory distress; patient reported that his pain was increased from baseline but adequately controlled. 06/13/19, Patient remained BiPAP dependent and quickly desaturated when transitioning to nasal cannula. He did maintain saturations while on nonrebreather for short periods of time for phone calls, meals, and working with physical therapy. Nursing set the patient up to the edge of the bed for his dinner. Patient was able to pull his NRB to the side to eat and then place mask back to his face between bites. Nursing reports that he was conversational and without increased work of breathing at that time. Shortly later, he was noted to have bradycardia on telemetry. Upon immediate arrival to the room, nursing noted the patient to be unresponsive and cyanotic. Code Arrest was called. ACLS protocols initiated with Code Response team. The patient was pronounced at 1752. <,BETY Neel - Last Filed: 06/14/19 19:16> Summary Hospital Course:: CODE NOTE Encountered patient first during code blue. CODE BLUE called overhead around 17:32. Arrived immediately at bedside with Mahnaz Hastings ACCOUNTING/FINANCE TUTOR. Informed by nursing staff in patient's room that patient had become suddenly severely bradycardic while eating and was found unresponsive in his room and pulseless. Upon arrival, patient was cyanotic, CPR had already been initiated, bag and mask ventilation had been started and patient was receiving a dose of epinephrine 1 mg. Suspected initial rhythm was PEA/asystole. Defibrillator pads were on. Multiple rounds of CPR were performed and epinephrine was administered x6, 1 amp of bicarb x2, 1 L normal saline bolus was initiated via pressure bag. Suctioning attempted during code but no food particles were obtainable. Dean Of Men and content producer also presented to bedside. Multiple attempts at ET intubation were limited by patient's complex difficult airway. Glidescope was obtained and patient was successfully intubated. Throughout CODE BLUE, pulse checks only revealed PEA and mostly asystole. At some point, ROSC was suspected but on further immediate assessment, I did not believe that patient truly obtained ROSC and was rather still in PEA and CPR was briskly resumed. Given persistence of asystole despite multiple interventions, time of was called at 17:52. No objections in the room. Suspected cause of was acute hypoxic respiratory failure secondary to aspiration of food into airway. Family notified by Mahnaz Hastings NP. Refer to code sheets for further details.
[2019-06-13] MEDS ORDERED: METHYLPREDNISOLONE INJ 40 MG/1 ML SDV IV SCH (22:00)
[2019-06-13] MEDS ORDERED: CARVEDILOL 6.25 MG TABLET PO SCH (22:00)
[2019-06-13] MEDS ORDERED: FUROSEMIDE INJ/PF 20 MG/2 ML SDV IV SCH (22:00)
[2019-06-13] MEDS ORDERED: CARVEDILOL 12.5 MG TABLET PO SCH (22:00)
== END 2019-06-13 20:55 | DRG 189 ==
LOC: ER 16:21 → EH 18:54 → 3W 20:37
PROVIDERS: ADMIT Internal Medicine; ATTEND Registered Nurse
PROC: 5A09457 Assistance with Respiratory Ventilation, 24-96 Consecutive Hours, Continuous Positive Airway Pressure (ICD-10-PCS; principal; 2019-06-11)
PROC: 0WJ Anatomical Regions, General, Inspection (ICD-10-PCS; 2019-06-13)
DX: J96.22 Acute and chronic respiratory failure with hypercapnia (principal); I50.33 Acute on chronic diastolic (congestive) heart failure; J44.1 Chronic obstructive pulmonary disease with (acute) exacerbation; Z68.43 Body mass index [BMI] 50.0-59.9, adult; E66.2 Morbid (severe) obesity with alveolar hypoventilation; J96.21 Acute and chronic respiratory failure with hypoxia; R09.2 Respiratory arrest; E03.9 Hypothyroidism, unspecified; G89.29 Other chronic pain; G25.81 Restless legs syndrome; K21.9 Gastro-esophageal reflux disease without esophagitis; E87.5 Hyperkalemia; F32.9 Major depressive disorder, single episode, unspecified; I08.0 Rheumatic disorders of both mitral and aortic valves; Z99.81 Dependence on supplemental oxygen; Z79.891 Long term (current) use of opiate analgesic; Z91.14 Patient's other noncompliance with medication regimen; Z96.643 Presence of artificial hip joint, bilateral; Z60.2 Problems related to living alone; Z87.891 Personal history of nicotine dependence; Z88.6 Allergy status to analgesic agent
CPT/HCPCS: 31500; 36415; 36600; 71045; 80048; 80053; 80061; 82803; 83036; 83605; 83880; 84443; 84484; 85025; 85027; 92950; 93306; 94640; 94660; 99285; J0171; J1644; J1940; J2930; J3490; J7512; J7620